=== PATIENT | male | born 2000 | race Caucasian/White ===

== ENCOUNTER 2019-05-09 18:01 | Emergency (ER) | payer BC ==
[~2019-05-09] VITALS: Ht 180.3 cm; Wt 79.5 kg
[2019-05-09 18:27] VITALS: BP 124/76; TEMP 98.4
[2019-05-09 20:31] VITALS: PULSE 76
== END 2019-05-09 20:32 | disposition home or self-care (01) ==
LOC: COL.ER 18:01
DX: S93.402A Sprain of unspecified ligament of left ankle, initial encounter (principal); X50.1XXA Overexertion from prolonged static or awkward postures, initial encounter; Y92.009 Unspecified place in unspecified non-institutional (private) residence as the place of occurrence of the external cause; Y93.02 Activity, running